=== PATIENT | female | born 1995 | race Caucasian/White ===

== ENCOUNTER 2018-01-22 16:17 | Emergency (ER) | payer OTHER ==
[~2018-01-22] VITALS: Ht 160 cm; Wt 68.1 kg
[2018-01-22] MEDS ORDERED: TETANUS/DIPHTHERIA TOX ADULT 0.5 ML SYR IM ONE (17:15)
== END 2018-01-22 17:15 | disposition home or self-care (01) ==
LOC: FSED 16:17
DX: W53.01XA Bitten by mouse, initial encounter (principal); Y92.008 Other place in unspecified non-institutional (private) residence as the place of occurrence of the external cause
CPT/HCPCS: 90471; 90714; 99283